=== PATIENT | female | born 1990 | race Caucasian/White ===

== ENCOUNTER → 2024-01-04 12:00 | Outpatient (REF) | payer OTHER, SELFPAY | LOC: PAVMRI 12:00 | PROVIDERS: ATTENDING PHYSICIAN Physician Assistant Surgical; FAMILY PHYSICIAN Orthopaedic Surgery | DX: M51.37 Other intervertebral disc degeneration, lumbosacral region (principal); Z98.890 Other specified postprocedural states | CPT/HCPCS: 72158; A9575 ==

== ENCOUNTER 2024-03-15 18:23 | Emergency (ER) | payer OTHER, SELFPAY ==
[2024-03-15 18:29] VITALS: BP 130/90
--- NOTE | 2024-03-15 21:28 | ED.SKININJ ---
HPI-Injury
General
Chief Complaint: Head Injury
Source: patient
Exam Limitations: none
Time Seen by Provider: 03/15/24 21:13
Travel History
Have you had any contact with someone who has COVID-19?: No
Do you have any symptoms of coronavirus? Fever > 100 degrees, chills, cough, shortness of breath, sore throat, loss of taste or smell, muscle aches, or headache?: No
History of Present Illness-Injury
Initial Injury comments:
34-year-old female presents for evaluation of head injury. 2 nights ago she hit her forehead on a door handle bending over. No loss conscious at that time. She notes a worsening headache and now paresthesias around the right eye. She denies any
vision change. No neck pain. No anticoagulants. No prior head injury. No other complaints at this time.
Past History
Past History
ED Past Medical History: None
ED Past Surgical History: Orthopedic and Other
Social History
Tobacco: Non-smoker
Alcohol: Other
Drug: None
Personal:
Living: with family
Employment: Other
Family History
Family History: Other
Phy Exam
Physical Exam
Physical Exam:
General: Well-appearing female no acute respiratory distress
HEENT: Normocephalic hematoma noted to the right mid forehead. Pupils equal round reactive to light no facial asymmetry. Extraocular's are intact
Neurologic: Alert and oriented conversing. Good sensation and function to bilateral aspects of the
Course
Orders/Labs/Results
Orders:
Orders
03/15/24 21:21
CT Head W/o Iv Contrast Urgent
Comment:
Reason For Exam: head injury
Vital Signs
Initial and Last Documented VS:
Initial Vital Signs
Temp Pulse Resp BP Pulse Ox
98.2 F 80 17 130/90 99
03/15/24 18:29 03/15/24 18:29 03/15/24 18:29 03/15/24 18:29 03/15/24 18:29
Last Documented Vital Signs
Temp Pulse Resp BP Pulse Ox
98.2 F 79 13 126/74 100
03/15/24 18:29 03/15/24 22:09 03/15/24 22:09 03/15/24 22:09 03/15/24 22:09
MDM/Problems Addressed
Differential Diagnosis Includes:
Head injury now with worsening headache and paresthesias to the right side of the face.
Explained to patient treatment and imaging options. Patient concerned that she is getting on a flight tomorrow to travel to [place]. Likely that there is no fracture or bleed given the mechanism but will order CT secondary to the worsening
symptoms and now paresthesia
*Critical Care Note
Total Time (30-74mins, 75-104mins- exclusive of procedures): Not Applicable
Update Note
Update Note:
CT head negative Other than hematoma of the scalp. I suspect the paresthesias may be related to localized swelling around the nerve. No neurologic deficit on exam. Recommended ibuprofen or Tylenol for this. Ice for swelling. Stable for
discharge. Patient reassured
ED Attending Note
-
Portions of this chart may have been created with voice recognition software.� Occasional wrong word or��sound alike� substitutions may have occurred due to the inherent limitations of voice recognition software.
Discharge Plan
Departure
Patient Disposition: Home (Routine Discharge)
Date of Disposition: 03/15/24
Time of Disposition: 22:12
Patient with high blood pressure during this ER visit?: No
Discharge Problem:
Hematoma
Instructions: Contusion (DC)
Referrals:
Nishi Avelar, [Family Provider] -
Activity Restrictions/Additional Instructions:
Continue with ice. Try Tylenol or ibuprofen for pain peer return for worsening symptoms otherwise follow-up with family doctor
Interventions
Interventions:
*Risk Screen - Suicide Last Done: 03/15/24 18:30
*General Assessment Last Done: 03/15/24 18:30
*Neglect/Abuse Screening Last Done: 03/15/24 18:30
*ED COVID-19 Vaccine History Last Done: 03/15/24 18:30
ED- Neurological Assessment Last Done: 03/15/24 21:16
ED-Skin Assessment Last Done: 03/15/24 21:16
Discharge Date and Time
Print Language: GABONESE
[2024-03-15 22:09] VITALS: BP 126/74
== END 2024-03-15 22:18 | disposition home or self-care (01) ==
LOC: EMR 18:23
PROVIDERS: EMERGENCY PHYSICIAN Emergency Medicine; FAMILY PHYSICIAN Family Medicine
DX: S00.03XA Contusion of scalp, initial encounter (principal); W22.8XXA Striking against or struck by other objects, initial encounter
CPT/HCPCS: 99284; 70450